=== PATIENT | female | born 1970 | race Caucasian/White ===

== ENCOUNTER 2022-06-13 12:20 | Emergency (ER) | payer OTHER, SELFPAY ==
--- NOTE | ~2022-06-13 | XR_ITS ---
XR facial bones min 3V 06/13/2022 13:17 Indication: Moderate to the left side of the face. Procedure: 5 views of the facial bones Comparison: No prior studies for comparison. Findings: Orbits appear to be intact. There is opacification of the left maxillary sinus. Mastoids ar e pneumatized. No gross fracture or malalignment. Impression: 1: No acute fracture identified. If there is continued concern for facial fracture, follow-up CT geni mmended. 2: Opacification left maxillary sinus, consistent with sinus disease. Reviewed, dictated and finalized at location A. PER Impression: 1: No acute fracture identified. If there is continued concern for facial fract ure, follow-up CT recommended. 2: Opacification left maxillary sinus, consistent with sinus disease.
[2022-06-13 12:39] VITALS: BP 138/90; PULSE 107; RESP 16; TEMP 37.1; O2SAT 100
--- NOTE | 2022-06-13 13:11 | ED.WOUNDLAC ---
HPI - Wound/Laceration General Chief Complaint: Wound/Laceration Stated Complaint: injury on face-hit by lge can of soup Time Seen by Provider: 06/13/22 13:11 Mode of arrival: ambulatory History of Present Illness HPI narrative: Patient presents with a bruise to her left cheek bone. Patient states 1 week ago she was getting a can of soup out of the cupboard and fell hitting her on her left cheek. Patient denies any head injury patient denies any dizziness no nausea. Patient presents for evaluation of left cheek injury. No open area noted no deformity noted. Patient states she missed work due to the pain to her cheek. The patient states she feels as if she gets dizzy from the pain and looking at her computer screen since the injury. Related Data Home Medications Medication Instructions Recorded Confirmed dextroamphetamine-amphetamine ER PO 06/13/22 20 mg 24hr capsule,extend release diclofenac sodium 75 mg mg PO 06/13/22 tablet,delayed release leflunomide 20 mg tablet mg 06/13/22 leflunomide 20 mg tablet mg 06/13/22 levothyroxine 100 mcg tablet mcg 06/13/22 valacyclovir 1 gram tablet mg 06/13/22 venlafaxine 225 mg tablet,extended mg PO 06/13/22 release 24 hr Allergies Allergy/AdvReac Type Severity Reaction Status Date / Time Penicillins Allergy Mild Swelling Verified 11/24/10 07:00 Sulfa (Sulfonamide Allergy Mild RASH Verified 11/24/10 06:59 Antibiotics) Review of Systems Review of Systems: My ROS CONSTITUTIONAL: Denies fever, chills, or sweats. EYES: Denies visual changes, redness, or discharge. ENT: Denies rhinorrhea, congestion, sore throat, or otalgia. CARDIOVASCULAR: Denies chest pain, palpitations, or edema. RESPIRATORY: Denies cough or dyspnea. GASTROINTESTINAL: Denies abdominal pain, nausea, vomiting, or diarrhea. GENITOURINARY: Denies dysuria or hematuria. SKIN: Denies rash or itching. MUSCULOSKELETAL: Denies back pain, joint pain, or myalgia. NEUROLOGIC: Denies headache, numbness, or weakness. PSYCHIATRIC: Denies anxiety or depression. [facility] Comments At time of signature, agree with nursing past medical, surgical, social and family history. There is no relevant family history pertinent to the presenting complaint Exam Narrative: GENERAL: Well-appearing, well-nourished, and in no acute distress. HEAD: Normocephalic, atraumatic. EYES: PERRLA and EOMI. ENT: Nares clear, no rhinorrhea or epistaxis. Mucous membranes moist. NECK: Supple. CHEST: Clear to auscultation. No respiratory distress. HEART: Regular rate and rhythm. No murmur heard. Normal peripheral pulses. ABDOMEN: Soft, nontender, nondistended, normal active bowel sounds. EXTREMITIES: Normal range of motion. No edema. SKIN: Warm, dry, no rash. Bruising to left cheek bone no open areas noted slightly tender with palpation NEURO: No focal deficits. Alert and oriented x3.SPEECH IS CLEAR. NO LANGUAGE DEFICITS. CRANIAL NERVES: PUPILS EQUAL, ROUND, AND REACTIVE TO LIGHT. VISUAL COOPER FULL. EXTRA-OCULAR MOVEMENTS INTACT. NO NYSTAGMUS NOTED. FACIAL SENSATION INTACT TO LIGHT TOUCH. FACIAL MOVEMENT FULL AND SYMMETRIC. PALATE MIDLINE. TONGUE MIDLINE, MOVING EQUALLY IN BOTH DIRECTIONS. UVULA IS MIDLINE. SHOULDER SHRUG EQUAL ON BOTH SIDES. BILATERAL HAND GRASP 5/5. GAIT NORMAL. HEEL TO TOE AND TANDEM WALK NORMAL. FINGER TO NOSE NORMAL. NEG ROMBERG. Lukas Coma Scale Eye Opening: Spontaneous 4 [place] Coma Scale Motor: Obeys Commands 6 [place] Coma Scale Verbal: Oriented 5 [place] Coma Scale Total 15 Course Course Level of Care: Express Care Visit Vital Signs Vital signs: Vital Signs Temperature 37.1 C 06/13/22 12:39 Pulse Rate 107 H 06/13/22 12:39 Respiratory Rate 16 06/13/22 12:39 Blood Pressure 138/90 06/13/22 12:39 Pulse Oximetry 100 06/13/22 12:39 Oxygen Delivery Room Air 06/13/22 12:39 Temperature 37.1 C 06/13/22 12:39 Pulse Rate 107 H 06/13/22 12:39 Respiratory Rate 16 06/13/22 12:39 Bl
== END 2022-06-13 13:51 | disposition home or self-care (01) ==
PROVIDERS: Emergency Provider Nurse Practitioner Family; PCP Internal Medicine
DX: S00.83XA Contusion of other part of head, initial encounter (principal); W20.8XXA Other cause of strike by thrown, projected or falling object, initial encounter; M06.9 Rheumatoid arthritis, unspecified; E03.9 Hypothyroidism, unspecified
CPT/HCPCS: 70150; 99203; G0463